=== PATIENT | female | born 1990 | race Two or more races ===

== ENCOUNTER 2025-09-19 13:44 | Outpatient (CLI) | payer OTHER | END 2025-09-19 13:46 | disposition home or self-care (01) | LOC: PRENATAL 13:44 | PROVIDERS: ATTEND Obstetrics & Gynecology Maternal & Fetal Medicine | DX: O44.02 Complete placenta previa NOS or without hemorrhage, second trimester (principal); O09.522 Supervision of elderly multigravida, second trimester; O43.92 Unspecified placental disorder, second trimester; Z3A.19 19 weeks gestation of pregnancy ==